=== PATIENT | female | born 2000 | race Caucasian/White ===

== ENCOUNTER 2019-12-12 00:38 | Emergency (ER) | payer MEDICAID ==
[2019-12-12] MEDS ORDERED: Lidocaine 1% with EPINEPHrine 1:100,000 20 ML MDV INJECT ONE (02:12)
[2019-12-12] MEDS ORDERED: Diphtheria,Pertussis(Acell),Tetanus Vaccine 0.5 ML Syringe IM ONE (02:12)
[2019-12-12] MEDS ORDERED: Bupivacaine 0.5% 10 ML SDV INJECT ONE (02:12)
--- NOTE | 2019-12-12 02:12 | EDM.PDOC ---
ED HPI GENERAL MEDICAL PROBLEM - General Chief Complaint: Laceration Stated Complaint: LEFT WRIST CUT Time Seen by Provider: 12/12/19 01:55 Source of Information: Reports: Patient History Limitations: Reports: Intoxication - History of Present Illness INITIAL COMMENTS - FREE TEXT/NARRATIVE: Jose F is a pleasant, but intoxicated, 19-year-old woman with no chronic medical problems and no past surgical history, who now presents to the ED after lacerating her distal left forearm. She states that she was playing [employer] with friends. She states that she drank 4 shots and about 5 beers. Someone, probably the patient, fell on the beer [employer] table around 00:30, which collapsed, and the patient cut her distal left forearm on a broken beer bottle. She is otherwise uninjured. When I went to evaluate the patient, she and her boyfriend were having an argument. She told him to leave, he did, and now she is upset. The patient's PCP is DIONY Ibarra. The patient does not recall when her last tetanus vaccination was. She agreed to receive one here today. She did not receive an influenza vaccine this season, but agreed to receive one here today. Left Wrist Pain Score (Numeric/FACES): 10 - Related Data Allergies Allergy/AdvReac Type Severity Reaction Status Date / Time No Known Allergies Allergy Verified 12/12/19 00:47 Home Meds: Home Meds . [No Known Home Meds] 12/12/19 [History] Past Medical History - Past Health History Medical/Surgical History: Denies Medical/Surgical History Social & Family History - Tobacco Use Tobacco Use Within Last Twelve Months: Vaping (nicotine) - Caffeine Use Caffeine Use: Reports: Coffee - Alcohol Use Alcohol Use History: Yes Days Per Week of Alcohol Use: 2 Number of Drinks Per Day: 6 Total Drinks Per Week: 12 - Recreational Drug Use Recreational Drug Use: Yes Drug Use in Last 12 Months: Yes Recreational Drug Type: Reports: Marijuana/Hashish (smokes on occasion) - Living Situation & Occupation Living situation: Reports: Single, Other (Roommates) Occupation: Unemployed ED ROS GENERAL - Review of Systems Review Of Systems: Comprehensive ROS is negative, except as noted in HPI. ED EXAM, SKIN/RASH Exam: See Below Exam Limited By: No Limitations General Appearance: Alert, Thin, Other (Tearful) Extremities: Other (There is an approximately 5 cm linear laceration to the distal vulvar ulnar aspect of the patient's left forearm. There is a significant laceration to what is likely the flexor carpi ulnaris tendon. There may also be some laceration to some local musculature. The wound is clean in appearance, and not currently bleeding. A few centimeters proximal on the forearm, there is an proximately 3.0 cm partial-thickness linear laceration. The wound is clean, and not bleeding. Neurovascular status of the left hand is intact.) ED SKIN PROCEDURES - Laceration/Wound Repair Left Distal Arm Appearance: Subcutaneous, Linear, Clean Distal NVT: Neuro & Vascular Intact Anesthetic Type: Local Local Anesthesia - Lidocaine (Xylocaine): 1% with EPI (50:50 admixture) Local Anesthesia - Bupivicaine (Marcaine): 0.5% Plain (50:50 admixture) Local Anesthetic Volume: 2cc Skin Prep: Providone-Iodine (Betadine) Exploration/Debridement/Repair: Wound Explored, In a Bloodless Field, Explored to Base, No Foreign Material Found Closed with: Sutures Lac/Wound length In cm: 5.0 Suture Size: 3-0 Suture Type: Nylon (Ethilon), Running Drain Placement: No Sterile Dressing Applied: None Tetanus Status Addressed: Yes Complications: No Course - Vital Signs Last Recorded V/S: Last Vital Signs Temp 37.3 C 12/12/19 00:45 Pulse 124 H 12/12/19 00:45 Resp 20 12/12/19 00:45 BP 117/86 12/12/19 00:45 Pulse Ox 98 12/12/19 00:45 - Orders/Labs/Meds Orders: Active Orders 24 hr Category Date Time Status Influenza Vaccine Charge [RC] .DISCHARGE Care 12/12/19 02:12 Active Vaccines to be Administered [RC] PER UNIT ROUTINE Care 12/12/19 02:12 Active Meds: Medications Discontinued Medications Generic Name Dose Route Start Last Admin Trade Name Joseq PRN Reason Stop Dose Admin Bupivacaine HCl 10 ml 12/12/19 02:12 12/12/19 02:29 Sensorcaine-Mpf 0.5% INJECT 12/12/19 02:13 10 ml ONETIME ONE Administration Diphtheria/Tetanus/Acell Pertussis 0.5 ml 12/12/19 02:12 12/12/19 02:30 Adacel IM 12/12/19 02:13 0.5 ml .ONCE ONE Administration Cefazolin Sodium/Dextrose 2 gm 50 mls @ 100 mls/hr 12/12/19 02:15 12/12/19 02 :29 / Premix IV 12/12/19 02:44 100 mls/hr ONETIME STA Administration Influenza Virus Vaccine 1 each 12/12/19 02:12 Pharmacy To Dose - Influenza Vaccine IM 12/12/19 02:13 ONETIME ONE Influenza Virus Vaccine 60 mcg 12/12/19 02:15 12/12/19 02:29 Fluzone Quad [id number] Syringe IM 12/12/19 02:16 60 mcg .ONCE ONE Administration Lidocaine/Epinephrine 20 ml 12/12/19 02:12 12/12/19 02:29 Xylocaine 1% With Epinephrine 1:100,000 INJECT 12/12/19 02:13 20 ml ONETIME ONE Administration - Re-Assessments/Exams Free Text/Narrative Re-Assessment/Exam: 12/12/19 02:05 As above, the patient has a fairly deep laceration to the ulnar volar aspect of her distal left forearm, with a likely partial laceration of her flexor carpi ulnaris tendon, plus a possible laceration of some musculature, as well. The tendon laceration will require repair. 12/12/19 02:11 Case discussed with Inés at [facility] at 02:05. Case then discussed with Dr. Royer Monzon, Orthopedic Surgeon [employer] truck driver at [facility], at 02:09. He recommended that I suture the skin, then placed the patient into an ulnar gutter splint, which will prevent her from using the flexor tendon. He would like me to give a single dose of IV Ancef. She should then follow-up with Dr. Vahe Hagen next week, for tendon repair. 12/12/19 03:32 An IV was placed by the patient's nurse, and 2 g IV Ancef was given. The patient's distal left forearm was sterilized with Betadine, then a sterile field was created. Her wound was infiltrated with a 50:50 mixture of bupivacaine 0.5% without an Afrin and lidocaine 1% with epinephrine, to good anesthetic effect. The wound was then closed with 12 running sutures using 3-0 Ethilon. The patient tolerated the procedure well. The adjacent 3 cm superficial laceration was then approximated using Dermabond. An ulnar gutter splint was then created, with the hand in a thumbs up position and the elbow at 90 degrees. The patient will now be discharged home. She should take Tylenol or ibuprofen as needed for discomfort. She is to call the office of Dr. Hagen on 12/14/2019, to make an appointment to be seen this coming week. Departure - Departure Time of Disposition: 03:34 Disposition: Home, Self-Care 01 Condition: Good Clinical Impression: Laceration of flexor tendon of forearm, Laceration of left forearm - Discharge Information *PRESCRIPTION DRUG MONITORING PROGRAM REVIEWED*: Not Applicable *COPY OF PRESCRIPTION DRUG MONITORING REPORT IN PATIENT JARAD: Not Applicable Instructions: Laceration Care, Adult, Jywe-me-Mult, Sutured Wound Care, Easy-to -Read Referrals: Angeli Villalpando PA-C [Ordering Only Provider] - Vahe Hagen Sr, MD [Physician] - Forms: ED Department Discharge Additional Instructions: You were seen in the ER after cutting your left forearm on a broken beer bottle. On examination, you have a partial laceration of a flexor tendon in your forearm. You received 2 g of the antibiotic Ancef in the ER. The skin laceration was sutured, but the tendon laceration will require additional repair. Do not get the splint wet. Take Tylenol or ibuprofen as needed for discomfort. Contact the office of the hand surgeon Dr. Vahe Hagen on 12/14/2019, to make an appointment to see Dr. Hagen this coming week. If any other problems, please do not hesitate to return to the ER. Sepsis Event Note - Evaluation Sepsis Screening Result: No Definite Risk - Focused Exam Vital Signs: Vital Signs Temp Pulse Resp BP Pulse Ox 12/12/19 00:45 37.3 C 124 H 20 117/86 98 Date Exam was Performed: 12/12/19 Time Exam was Performed: 07:29 - My Orders Last 24 Hours: My Active Orders 12/12/19 02:12 Influenza Vaccine Charge [RC] .DISCHARGE Vaccines to be Administered [RC] PER UNIT ROUTINE - Assessment/Plan Last 24 Hours: My Active Orders 12/12/19 02:12 Influenza Vaccine Charge [RC] .DISCHARGE Vaccines to be Administered [RC] PER UNIT ROUTINE ED LACERATION PROCEDURES - Laceration/Wound Repair Left Distal Arm Lac/wound length in cm: 3.0 Appearance: Superficial, Linear, Clean Distal NVT: Neuro & Vascular Intact, No Tendon Injury Exploration/Debridement/Repair: Wound Explored, In a Bloodless Field, Explored to Base, No Foreign Material Found Closed with: Dermabond Drain Placement: No Sterile Dressing Applied: None Tetanus Status Addressed: Yes Complications: No
[2019-12-12] MEDS ORDERED: FLU Vacc QS2019-20(6MOS+)/PF 60 MCG/0.5 ML SYRINGE IM ONE (02:15)
[2019-12-12] MEDS ORDERED: ceFAZolin 2 GM in Premix Bag 1 BAG IV STA (02:15)
== END 2019-12-12 03:30 | disposition home or self-care (01) ==
LOC: JD.ED 00:38
DX: S56.222A Laceration of other flexor muscle, fascia and tendon at forearm level, left arm, initial encounter (principal); Z23 Encounter for immunization; W26.8XXA Contact with other sharp object(s), not elsewhere classified, initial encounter
CPT/HCPCS: 12004; 90471; 90686; 90715; 96365; 99282; J0690; J3490; 12002; 29125; 99283; G0008

== ENCOUNTER 2022-03-12 12:34 | Emergency (ER) | payer MEDICAID | END 2022-03-12 14:20 | disposition home or self-care (01) | LOC: JD.ED 12:34 | DX: O9A.213 Injury, poisoning and certain other consequences of external causes complicating pregnancy, third trimester (principal); T58.91XA Toxic effect of carbon monoxide from unspecified source, accidental (unintentional), initial encounter; Z3A.28 28 weeks gestation of pregnancy | CPT/HCPCS: 36600; 82375; 82803; 99283 ==

== ENCOUNTER 2022-05-20 02:35 | Inpatient (IN) | payer MEDICAID ==
[~2022-05-20 02:35] MED LIST: Bupivacaine 0.25% 10 ML SDV ONE
[2022-05-20] MEDS ORDERED: Acetaminophen 325 MG Tab PO PRN (02:48)
[2022-05-20] MEDS ORDERED: Nalbuphine HCl 10 MG/ 1ML Amp IVPUSH PRN (02:48)
[2022-05-20] MEDS ORDERED: Calcium Carbonate 500 MG Tab.Chew PO PRN ×2 (02:48→12:11)
[2022-05-20] MEDS ORDERED: Lidocaine 1% 50 ML MDV INJECT PRN (02:48)
[2022-05-20] MEDS ORDERED: Ondansetron 4 MG/2 ML SDV IVPUSH PRN (02:48)
[2022-05-20] MEDS ORDERED: Oxytocin/Lactated Ringers 10 UNIT/1,000 ML BAG IV SCH ×2 (03:00→15:45)
[2022-05-20] MEDS: Lactated Ringers 1,000 ML IV SCH ×4 (03:39→10:28)
[2022-05-20] MEDS ORDERED: Bupivacaine/fentaNYL/NS 100 ML Bag EPIDUR PRN (03:45)
[2022-05-20] MEDS ORDERED: ePHEDrine 50 MG/ML SDV IVPUSH PRN (03:45)
[2022-05-20] MEDS ORDERED: diphenhydrAMINE 50 MG/ML SDV IVPUSH PRN (03:45)
[2022-05-20] MEDS ORDERED: fentaNYL 100 MCG/2 ML SDV EPIDUR PRN (03:45)
[2022-05-20] MEDS: Oxytocin/Lactated Ringers 10 UNIT/1,000 ML BAG IV SCH ×2 (11:11→15:40)
[2022-05-20] MEDS ORDERED: Methylergonovine 0.2 MG/1 ML Amp IM ONE (13:59)
[2022-05-20] MEDS ORDERED: Benzocaine/Menthol 20%-0.5% Spray 78 GM Cannister TOP PRN (14:00)
[2022-05-20] MEDS ORDERED: Witch Hazel Medicated Pads 40/Jar TOP PRN (14:00)
[2022-05-20] MEDS ORDERED: Methylergonovine 0.2 MG/1 ML Amp ONE (14:01)
[2022-05-20] MEDS ORDERED: Carboprost Tromethamine 250 MCG/1 ML Amp IM ONE (14:43)
[2022-05-20] MEDS ORDERED: Carboprost Tromethamine 250 MCG/1 ML Amp ONE (14:44)
[2022-05-20] MEDS ORDERED: fentaNYL 100 MCG/2 ML SDV ONE (15:06)
[2022-05-20] MEDS ORDERED: Tranexamic Acid 1,000 MG in Sodium Chloride 0.9% 100 ML IV ONE (15:30)
[2022-05-20] MEDS ORDERED: fentaNYL 100 MCG/2 ML SDV IVPUSH ONE (15:36)
[2022-05-20] MEDS: Docusate Sodium 100 MG Cap PO PRN (16:21)
[2022-05-20] MEDS: Ibuprofen 600 MG Tab PO PRN ×2 (16:22→23:45)
[2022-05-20] MEDS: Acetaminophen 325 MG Tab PO PRN ×2 (16:23→23:46)
[2022-05-20] MEDS ORDERED: Oxytocin/Lactated Ringers 10 UNIT/1,000 ML BAG IV STA (16:30)
[2022-05-21] MEDS: Ibuprofen 600 MG Tab PO PRN ×2 (10:25→15:52)
[2022-05-21] MEDS: Docusate Sodium 100 MG Cap PO PRN (10:26)
[2022-05-21] MEDS: Acetaminophen 325 MG Tab PO PRN (15:52)
[2022-05-22] MEDS: Acetaminophen 325 MG Tab PO PRN ×2 (01:22→10:47)
[2022-05-22] MEDS: Ibuprofen 600 MG Tab PO PRN (01:24)
== END 2022-05-22 12:20 | disposition home or self-care (01) | DRG 807 ==
LOC: JD.OBCHECK 02:35 → JD.OB 02:40 → JD.OBCHECK 02:47 → JD.OB 02:48 → OBSVTOIN 13:08 → JD.OB 13:09
PROVIDERS: ADMIT Obstetrics & Gynecology; ATTEND Obstetrics & Gynecology
PROC: 10E0XZZ Delivery of Products of Conception, External Approach (ICD-10-PCS; principal; 2022-05-20)
PROC: 0KQM0ZZ Repair Perineum Muscle, Open Approach (ICD-10-PCS; 2022-05-20)
PROC: 10907ZC Drainage of Amniotic Fluid, Therapeutic from Products of Conception, Via Natural or Artificial Opening (ICD-10-PCS; 2022-05-20)
PROC: 3E0R3BZ Introduction of Anesthetic Agent into Spinal Canal, Percutaneous Approach (ICD-10-PCS; 2022-05-20)
DX: O70.1 Second degree perineal laceration during delivery (principal); Z37.0 Single live birth; Z3A.38 38 weeks gestation of pregnancy; Z87.891 Personal history of nicotine dependence
CPT/HCPCS: 36415; 51702; 59025; 59409; 85027; 86592; 86850; 86900; 86901; A9270-GY; J2210; J2590; J3010; J3490; J7120